=== PATIENT | male | born 1980 | race Caucasian/White ===

== ENCOUNTER 2025-03-28 07:56 | Emergency (ER) | payer MEDICAID, SELFPAY ==
[2025-03-28 07:57] VITALS: BP 140/99; PULSE 85; RESP 14; TEMP 36.6; O2SAT 98; BMI 28.7
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
[2025-03-28 08:30] VITALS: BP 135/104; PULSE 81; RESP 16; TEMP 36.6; O2SAT 98
== END 2025-03-28 08:32 | disposition home or self-care (01) ==
LOC: ED 08:22
PROVIDERS: Emergency Provider Emergency Medicine; Visit Provider Emergency Medicine
DX: S40.019A Contusion of unspecified shoulder, initial encounter (principal); M25.511 Pain in right shoulder; V43.52XA Car driver injured in collision with other type car in traffic accident, initial encounter; M25.512 Pain in left shoulder; Y92.410 Unspecified street and highway as the place of occurrence of the external cause; F17.210 Nicotine dependence, cigarettes, uncomplicated
CPT/HCPCS: 99282